=== PATIENT | female | born 1985 | race African-American/Black ===

== ENCOUNTER 2020-08-21 07:00 | Outpatient (NON) | payer OTHER, SELFPAY ==
[2020-08-21 18:02] LABS: SARS-CoV-2 RNA PCR Negative
== END 2020-08-21 07:01 ==
PROVIDERS: PCP Emergency Medicine; Visit Provider Emergency Medicine
DX: Z20.828 Contact with and (suspected) exposure to other viral communicable diseases (principal)
CPT/HCPCS: 87635; C9803; U0003

== ENCOUNTER 2020-11-12 10:07 | Emergency (ER) | payer OTHER, SELFPAY ==
--- NOTE | ~2020-11-12 | XR_ITS ---
EXAMINATION: XR chest 1V portable EXAM DATE: 11/12/2020 10:56 INDICATION: 2 weeks of chest pain, intermittent shortness of breath. TECHNIQUE: Portable AP frontal chest x-ray was obtained. There is no prior study for comparison. FINDINGS: The lungs are clear. There are no pleural effusions. The cardiomediastinal silhouette is within normal limits. There is no pneumothorax suspected. The bones and soft tissues are unremarkab le. IMPRESSION: No acute cardiopulmonary findings. Reviewed, dictated and finalized at location A. 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
[2020-11-12 10:25] VITALS: BP 151/98; PULSE 73; RESP 20; TEMP 36.7; O2SAT 100
[2020-11-12 10:32] VITALS: PULSE 78
--- NOTE | 2020-11-12 10:35 | ECG_ITS ---
Measurements Intervals [place] Rate: 69 P: 59 [place]: 157 QRS: 48 QRSD: 87 T: 24 QT: 410 QTc: 441 Interpretive Statements SINUS RHYTHM NONSPECIFIC T-WAVE ABNORMALITY- ANT/INF LEADS BORDERLINE ECG Electronically Signed On 11-12-2020 11:09:26 CLINICAL LABORATORY SCIENTIST by Alex Lopez D.O.
[2020-11-12 11:21] VITALS: BP 144/94; PULSE 70; RESP 18; O2SAT 100
[2020-11-12 11:28] LABS: Basophils Percent Auto 0.5 % (0.2-1.2); Eosinophils Absolute Auto 0.1 K/mm3 (0-0.3); Eosinophils Percent Auto 1.2 % (0-4.4); Hemoglobin 13.9 g/dL (12.0-15.0); Immature Granulocyte Absolute 0.02 K/mm3 (0.00-0.031); Immature Granulocyte Percent A 0.3 % (0-0.5); Lymphocytes Absolute Auto 2.08 K/mm3 (0.9-3.2); Lymphocytes Percent Auto 35.9 % (18.3-44.2); Mean Corpuscular HGB Conc 33.1 g/dl (32-36); Mean Corpuscular Hemoglobin 28.7 pg (26-34); Mean Corpuscular Volume 86.6 fl (80-100); Mean Platelet Volume 10.7 fl (7.4-10.4); Monocytes Absolute Auto 0.4 K/mm3 (0.1-0.6); Monocytes Percent Auto 7.2 % (2.6-8.5); Neutrophils Absolute Auto 3.2 K/mm3 (1.3-6.7); Neutrophils Percent Auto 54.9 % (45.5-73.1); Platelet Count Result 225 k/mm3 (150-375); Red Blood Count 4.85 M/mm3 (4.2-5.4); Red Cell Distribution Width 13.2 % (11.5-14.5); White Blood Count 5.8 K/mm3 (4.5-10.0)
[2020-11-12 11:39] LABS: Anion Gap 4 mmol/L (8-16); Blood Urea Nitrogen 11 mg/dL (7-17); Calcium 9.2 mg/dL (8.4-10.2); Carbon Dioxide 27 mmol/L (22-30); Chloride 107 mmol/L (98-107); Estimated CRCL calculation 83 ml/min; Estimated Glomerular Filt Rate > 60; Glucose 84 mg/dL (65-105); Sodium 138 mmol/L (137-145)
[2020-11-12 11:51] LABS: Troponin I < 0.012 ng/mL (0.000-0.034)
--- NOTE | 2020-11-12 11:52 | ED.CHESTPAIN ---
HPI - Chest Pain General Chief Complaint: Chest Pain Stated Complaint: dr sent here after visit-cp Time Seen by Provider: 11/12/20 10:18 History of Present Illness HPI narrative: Patient is a 35-year-old female who presents to emergency department for evaluation of chest pain that has been intermittent for the last 3 weeks occurring most days is a mild aching pain to the mid chest patient was seen by primary care today has been evaluated for her blood pressure and had a medication added today but was referred to ER for chest pain patient on arrival notes mild discomfort of the chest patient denies URI symptoms or other complaints and is otherwise in no distress upon arrival resting comfortably in the room Related Data Allergies Allergy/AdvReac Type Severity Reaction Status Date / Time No Known Allergies Allergy Verified 11/12/20 10:50 Review of Systems Review of Systems: All systems reviewed & are unremarkable except as noted in HPI and below PMFSH Past Medical History Medical History (Updated 11/12/20 @ 11:56 by Julian Shaw PA-C) Hypertension Obesity Social History Social History (Updated 11/12/20 @ 11:54 by Julian Shaw PA-C) Smoking status: Never smoker Substance use type: marijuana Exam Narrative: Exam Narrative: GENERAL: Well-appearing, well-nourished, and in no acute distress. HEAD: Normocephalic, atraumatic. EYES: PERRLA and EOMI. ENT: Nares clear, no rhinorrhea or epistaxis. Mucous membranes moist. CHEST: Clear to auscultation. No respiratory distress. No wheezes rales or rhonchi HEART: Regular rate and rhythm. No murmur heard. Normal peripheral pulses. ABDOMEN: Soft, nontender, nondistended EXTREMITIES: Normal range of motion. No edema. SKIN: Warm, dry, no rash. NEURO: No focal deficits. Alert and oriented x3. Cranial nerves II through XII grossly intact PSYCH: Normal mood and affect. Course Course Emergency Course: Patient in the room no distress aware of case findings treatment plan diagnosis felt appropriate for outpatient reevaluation given the 3 weeks of duration and no high risk changes in the evaluation patient will be referred back to primary care for further evaluation ABCs and vital signs intact and stable. Vital Signs Vital signs: Vital Signs Temperature 98.0 F 11/12/20 10:25 Pulse Rate 73 11/12/20 10:25 Respiratory Rate 20 11/12/20 10:25 Blood Pressure 151/98 H 11/12/20 10:25 Pulse Oximetry 100 11/12/20 10:25 Temperature 98.0 F 11/12/20 10:25 Pulse Rate 70 11/12/20 11:21 Respiratory Rate 18 11/12/20 11:21 Blood Pressure 144/94 H 11/12/20 11:21 Pulse Oximetry 100 11/12/20 11:21 MDM - Chest Pain MDM Narrative Medical decision making narrative: Patients EKGs and labs are without significant high risk changes. Cardiac risk factors were reviewed. Patient is felt likely to be low risk for ACS and reasonable for further risk stratification testing as an outpatient. Pain was not sudden or maximal in onset without tearing or ripping. quality. No other signs or symptoms to suggest aortic dissection. A low-risk Wells criteria is noted. PE is felt to be unlikely. No pneumonia or URI symptoms were seen on evaluation today. Patient is felt to b reasonable for continued evaluation as an outpatient. Lab Data Result diagrams: 11/12/20 11:21 11/12/20 11:21 Labs: Lab Results 11/12/20 11/12/20 Range/Units 11:21 11:21 WBC 5.8 (4.5-10.0) K/mm3 RBC 4.85 (4.2-5.4) M/mm3 Hgb 13.9 (12.0-15.0) g/dL Hct 42.0 (37.0-47.0) % MCV 86.6 (80-100) fl MCH 28.7 (26-34) pg MCHC 33.1 (32-36) g/dl RDW 13.2 (11.5-14.5) % Plt Count 225 (150-375) k/mm3 MPV 10.7 H (7.4-10.4) fl Immature Gran % (Auto) 0.3 (0-0.5) % Neut % (Auto) 54.9 (45.5-73.1) % Lymph % (Auto) 35.9 (18.3-44.2) % [place] % (Auto) 7.2 (2.6-8.5) % Eos % (Auto) 1.2 (0-4.4) % Baso % (Auto) 0.5 (0.2-1.2) % Lymph #
[2020-11-12 12:10] VITALS: BP 133/77; PULSE 68; RESP 18; O2SAT 99
== END 2020-11-12 12:15 | disposition home or self-care (01) ==
PROVIDERS: Emergency Medicine Emergency Medical Services; Emergency Provider Emergency Medicine; PCP Emergency Medicine
DX: R07.9 Chest pain, unspecified (principal); I10 Essential (primary) hypertension; E66.9 Obesity, unspecified; Z68.41 Body mass index [BMI] 40.0-44.9, adult; R94.31 Abnormal electrocardiogram [ECG] [EKG]
CPT/HCPCS: 36415; 71045; 80048; 81025; 84484; 85025; 93005; 99284